=== PATIENT | female | born 1965 | race Caucasian/White ===

== ENCOUNTER → 2020-06-20 07:34 | Outpatient (CLI) | payer BC, SELFPAY ==
--- NOTE | ~2020-06-20 | XR_ITS ---
EXAMINATION: XR lumbar spine 2-3V EXAM DATE: 06/20/2020 08:03 INDICATION: Left hip pain, left leg pain. TECHNIQUE: Lumber spine frontal, lateral, lateral L5-S1 projections for interpretation. There is no prior study for comparison. FINDINGS: Mild to moderate disc disease L4-5 and L5-S1. Mild to moderate lower lumbar facet arthropa thy. No endplate erosive change. The vertebral bodies are aligned in the AP dimension. Sacrum, sacroi liac joints, sacral arcuate lines are intact. Paraspinal soft tissue is unremarkable. IMPRESSION: Mild to moderate lower lumbar spondylosis. Reviewed, dictated and finalized at location B. DEVELOPER WITH [employer]
--- NOTE | ~2020-06-20 | XR_ITS ---
EXAMINATION: XR hip LT min 2V DATE: 06/20/2020 08:03 INDICATION: Left hip and leg pain TECHNIQUE: Anteroposterior and frog-leg lateral views of the left hip were obtained. COMPARISON: None. FINDINGS: Bone alignment is normal. No fracture. No suspected avascular necrosis. Left hip and sacroiliac joint spaces are normal. Soft tissues are unremarkable. IMPRESSION: 1. No osseous abnormality. Reviewed, dictated and finalized at location A. MERCE MERCHANDISING MANAGER IMPRESSION: 1. No osseous abnormality.
== END ==
PROVIDERS: PCP Family Medicine; Visit Provider Family Medicine
DX: M79.645 Pain in left finger(s) (principal); M25.552 Pain in left hip; M47.816 Spondylosis without myelopathy or radiculopathy, lumbar region
CPT/HCPCS: 72100; 73502

== ENCOUNTER → 2020-06-25 14:55 | Outpatient (CLI) | payer BC, SELFPAY ==
--- NOTE | ~2020-06-25 | MM_ITS ---
EXAMINATION: MM scrn bran implant BI w chastity HISTORY: Screening mammogram TECHNIQUE: Craniocaudal and mediolateral oblique 3-D tomosynthesis images with implant displacement a nd synthetic 2-D images were generated. Craniocaudal and mediolateral oblique views of the breasts wi thout implant displacement were obtained using full field digital mammography. CAD analysis was submi tted and interpreted. COMPARISON: Comparison to multiple prior studies sequentially, with oldest reviewed study dated 01/07. BREAST PARENCHYMAL COMPOSITION: The breasts are heterogeneously dense, which may obscure small masses . FINDINGS: There is a developing focal asymmetry superiorly in the left breast on MLO implant displace d views. The right breast is stable without evidence for malignancy. IMPRESSION: 1. Developing left breast asymmetry. 2. Additional mammographic views and possible breast ultrasound are recommended. BI-RADS Category 0: Incomplete: Needs additional imaging evaluation. Reviewed, dictated and finalized at location A. ER IMPRESSION: 1. Developing left breast asymmetry. 2. Additional mammographic views and possible breast ultrasound are recommended . BI-RADS Category 0: Incomplete: Needs additional imaging evaluation.
== END ==
PROVIDERS: Visit Provider Obstetrics & Gynecology
DX: Z12.31 Encounter for screening mammogram for malignant neoplasm of breast (principal); R92.8 Other abnormal and inconclusive findings on diagnostic imaging of breast
CPT/HCPCS: 77063; 77067

== ENCOUNTER 2021-07-28 02:46 | Day surgery (SDC) | payer BC, SELFPAY ==
[2021-07-22 15:09] VITALS: BMI 21.4
[2021-07-28 06:52] VITALS: BP 92/62; PULSE 62; RESP 20; TEMP 36.3; O2SAT 100; BMI 21.0
[2021-07-28] MEDS: LACTATED RINGERS 1,000 ML 150 ML IV CONT (07:00)
--- NOTE | 2021-07-28 07:30 | P.CONGI_ITS ---
Assessment and Plan Assessment and plan (1) Encounter for screening colonoscopy: Code(s): Z12.11 - Encounter for screening for malignant neoplasm of colon Status: Acute Assessment and Plan: Patient presents for screening colonoscopy. Previously had a benign hyperplastic colon polyp. Further recommendations will be given after endoscopy. GI Consult Note Consult date/time: 07/28/21 07:30 HPI: Niki Anders is a 55 year old female Presents for screening colonoscopy. Patient reports that her current weight appetite bowel movements are normal. She denies abdominal pain. She has had no bleeding. Family history is noncontributory. Patient previously had a colon polyp 5 years ago that was determined to be a hyperplastic colon polyp. Review of Systems Review of Systems: All systems reviewed & are unremarkable except as noted in HPI and below PMFSH Past Medical History Medical History (Updated 07/28/21 @ 07:31 by Ori Wilson MD) Vaginal delivery Surgical History Surgical History History of dilation and curettage Family History Family History Grandparent Family history of malignant neoplasm of male breast, Onset Age: 8 Mother Family history of coronary artery disease Family history of malignant neoplasm of ovary Patient's mother is Social History Social History Smoking status: Former smoker Tobacco type: cigarettes Second hand tobacco smoke exposure: No Smoking end date: 04/26/13 Alcohol intake: current Alcohol use details: 2 drinks per month Substance use: never Substance use type: does not use Living arrangements: alone Spiritual care concerns: No Meds Home Medications and Allergies Home Medications Medication Instructions Recorded Confirmed Type clonazepam 0.5 mg PO DAILY 07/22/21 07/22/21 History valacyclovir 1,000 mg PO PRN PRN 07/22/21 07/22/21 History Allergies Allergy/AdvReac Type Severity Reaction Status Date / Time No Known Allergies Allergy Unknown Verified 07/28/21 06:51 Vital Signs Vital Signs - 24 hr 07/28/21 06:52 Temperature 97.3 F L Pulse Rate 62 Respiratory Rate 20 Blood Pressure 92/62 L Pulse Oximetry 100 Exam Narrative: Physical exam reveals patient to be alert. Vital signs stable. HEENT exam is unremarkable. Patient is anicteric. Lungs are clear to auscult ation and percussion. Heart is without murmur or extra sounds. Abdominal exam bowel sounds are present soft nontender with no organomegaly. Digital external rectal exam is normal.
--- NOTE | 2021-07-28 07:34 | WPDANESEPPF ---
Anes - Initial Pre Proc Eval Procedure: Operation Date: 07/28/21 08:00 Proposed Procedures p Screening Colonoscopy - Ori Wilson MD Date/Time: 07/28/21 07:34 Surgeon: Ori Wilson MD Pre Op Diagnosis: hx of colon polyps Patient Data Age: 55 Gender: F Height: 1.63 m Weight: 55.6 kg Last Vital Signs Temp 97.3 F L 07/28/21 06:52 Pulse 62 07/28/21 06:52 Resp 20 07/28/21 06:52 BP 92/62 L 07/28/21 06:52 Pulse Ox 100 07/28/21 06:52 Allergies Allergy/AdvReac Type Severity Reaction Status Date / Time No Known Allergies Allergy Unknown Verified 07/28/21 06:51 Home Medications Medication Instructions Recorded Confirmed Type clonazepam 0.5 mg PO DAILY 07/22/21 07/22/21 History valacyclovir 1,000 mg PO PRN PRN 07/22/21 07/22/21 History Patient hx anesthesia problems: none Family hx anesthesia problems: none Results Review: All pre-operative results and documents have been reviewed as part of the pre-operative evaluation. [facility] Past Medical History Medical History (Updated 07/28/21 @ 07:31 by Ori Wilson MD) Vaginal delivery Surgical History Surgical History History of dilation and curettage Family History Family History Grandparent Family history of malignant neoplasm of male breast, Onset Age: 8 Mother Family history of coronary artery disease Family history of malignant neoplasm of ovary Patient's mother is Social History Social History Smoking status: Former smoker Tobacco type: cigarettes Second hand tobacco smoke exposure: No Smoking end date: 04/26/13 Alcohol intake: current Alcohol use details: 2 drinks per month Substance use: never Substance use type: does not use Living arrangements: alone Spiritual care concerns: No Anes - Eval Final PreProcedure Day of Procedure 07/28/21 07:34 Patient weight: normal Heart: regular rate and rhythm Lungs: clear to auscultation Airway: Mallampati scale class II Neurological: alert and oriented Last oral intake: >/= 8 hours ASA classification: II Emergent: no Anesthetic plan: proceed Anesthesia type and monitoring: general GIVS and standard monitoring Results Review: All pre-operative results and documents have been reviewed as part of the pre-operative evaluation. Informed Consent: The patient's anesthetic plan and its attendant risks and benefits were discussed with the patient/family/POA. Questions were solicited and answers provided to the satisfaction of the patient/family/POA.
[2021-07-28 08:16] VITALS: BP 88/48; PULSE 54; RESP 26; O2SAT 100
[2021-07-28 08:26] VITALS: BP 93/52; PULSE 50; RESP 20; O2SAT 100
[2021-07-28 08:36] VITALS: BP 95/56; PULSE 49; RESP 23; O2SAT 100
== END 2021-07-28 08:42 | disposition home or self-care (01) ==
PROVIDERS: PCP Family Medicine; Visit Provider Internal Medicine Gastroenterology
PROC: 0DJD8ZZ Inspection of Lower Intestinal Tract, Via Natural or Artificial Opening Endoscopic (ICD-10-PCS; CPT 45378; principal; 2021-07-28 08:00)
DX: Z12.11 Encounter for screening for malignant neoplasm of colon (principal); K64.8 Other hemorrhoids; K57.30 Diverticulosis of large intestine without perforation or abscess without bleeding; Z86.010 Personal history of colon polyps; Z87.891 Personal history of nicotine dependence
CPT/HCPCS: 45378; J2704; J7120